=== PATIENT | female | born 1950 | race Caucasian/White ===

== ENCOUNTER 2017-08-10 22:42 | Observation (INO) | payer OTHER ==
[~2017-08-10] VITALS: Ht 170.2 cm; Wt 72.6 kg
[~2017-08-10 22:42] MED LIST: ANTIDIARRHEAL2 MG PO; BENZONATATE100 MG PO; CIPRO500 M1 PO; CIPRO500 MG PO; CIPROFLOXACIN500 M1 PO; DIFLUCAN PO; HYDROCODON-ACE1 EAC7 PO; HYDROCODONE-AP1 EAC6 PO; IBUPROFEN 800800 M1 PO; LEVAQUIN 500 M500 M2 PO; LISINOPRIL10 MG PO; LISINOPRIL5 MG PO; LORTAB 10-3251 EACH PO; METHOTREXATE 22.5 MG PO; NORCO 5-325 TA1 EAC1 PO; NORCO 5-325 TA1 EACH PO; ONDANSETRON HCL4 M2 PO; PROBIOTIC1 EAC2 PO; SINGULAIR 10 MG10 M1 PO; TORADOL 10 MG T10 MG PO; VICODIN 5-5001 EACH PO; ZOFRAN ODT4 MG PO; ZOFRAN8 MG PO
[2017-08-10 22:43] VITALS: BP 153/92
[2017-08-10] MEDS ORDERED: COZAAR 25 MG TA25 M1 PO (22:48)
[2017-08-10 23:08] LABS: ABSOLUTE BASOPHILS 0.1 thou/uL (0.0-0.2); ABSOLUTE EOSINOPHILS 0.1 thou/uL (0.0-0.7); ABSOLUTE LYMPHOCYTES 2.1 thou/uL (0.8-5.3); ABSOLUTE MONOCYTES 0.9 thou/uL (0.0-1.2); ABSOLUTE NEUTROPHILS 4.4 thou/uL (1.6-8.1); EOSINOPHILS 1.3 %; HEMATOCRIT 36.8 % (37.0-47.0); HEMOGLOBIN 12.1 gm/dL (12.0-15.0); LYMPHOCYTES 28.1 %; MCH 30.3 pg (26.0-34.0); MCHC 32.8 g/dL (28.0-37.0); MCV 92.4 fL (80.0-100.0); MONOCYTES 11.8 %; MPV 8.2 fl. (7.2-11.1); NUCLEATED RBCS 0 /100WBC; PLATELET COUNT* 424 thou/uL (150-400); POLYS 57.8 %; RBC 3.99 mil/uL (4.20-5.00); RDW-CV 14.9 % (10.5-14.5); WBC 7.6 thou/uL (4.0-11.0)
[2017-08-10 23:14] LABS: CALCIUM 8.8 mg/dL (8.5-10.1); CREATININE 0.7 mg/dL (0.6-1.3); POTASSIUM 3.7 mmol/L (3.5-5.1)
[2017-08-10 23:19] LABS: ALBUMIN 3.5 g/dL (3.4-5.0); TOTAL BILIRUBIN 0.6 mg/dL (<0.1-1.0); TOTAL PROTEIN 7.1 g/dL (6.4-8.2)
[2017-08-11 01:20] LABS: URINE BILIRUBIN NEGATIVE (Negative); URINE BLOOD 1+ (Negative); URINE CLARITY CLEAR; URINE COLOR YELLOW; URINE GLUCOSE-RANDOM NEGATIVE (Negative); URINE KETONES NEGATIVE (Negative); URINE LEUKOCYTES-REFLEX 1+ (Negative); URINE NITRITE-REFLEX NEGATIVE (Negative); URINE PROTEIN NEGATIVE (Negative); URINE SPECIFIC GRAVITY <= 1.005 (1.005-1.030); URINE UROBILINOGEN 0.2 E.U./dl (0.2-1.0)
[2017-08-11] MEDS ORDERED: CIPROFLOXACIN500 M1 PO ×2 (01:27→08:48)
[2017-08-11] MEDS ORDERED: LOPERAMIDE 2 MG2 M1 PO (01:27)
[2017-08-11 01:39] LABS: AMORPHOUS URATES Few /LPF (None Seen); BACTERIA-REFLEX >30 Many /HPF (None Seen); CASTS None Seen /LPF (None Seen); MUCUS 4-6 Moderate strn/LPF (None Seen); SQUAMOUS 0-3 Few /LPF (0-3); URINE RBC 3-10 Few /HPF (0-2); URINE WBC-REFLEX >25 Many /HPF (0-5); WBC CLUMPS Few (None Seen)
--- NOTE | 2017-08-11 04:21 | NUR ---
PATIENT WAS TO BE DISCHARGED HOME. PATIENT REPORTS TO THIS NURSE THAT SHE LIVES ALONE. SHE USES A WALKER BUT DOES NOT HVE IT HERE WITH HER. PATIENT CONTINUES TH HAVE EPISODES OF DIARRHEA. PATIENT REQUESTED TO STAY IN ED UNTILL CLOSER TO AM.
--- NOTE | 2017-08-11 04:35 | NUR ---
DR JOINER IS AT [facility] TALKING TO PATIENT ABOUT ADMISSION TO HOSPITAL. PATIENT HAD DECLINED ADMISSION BUT NOW STATES SHE WILL STAY FOR IV ANTIBIOTICS.
[2017-08-11 05:21] VITALS: BP 137/83
[2017-08-11 10:20] VITALS: BP 131/57
--- NOTE | 2017-08-11 10:44 | NUR ---
ORDER RECEIVED TO DISCUSS HOME SITUATION/SHOWER ABILITY TO SHOWER AT HOME. MET WITH PT AND DISCUSSED WITH NURSE. PT LIVES ALONE IN RENTAL HOUSE. SHE STATES SHE PLANS TO MOVE TO A SR APT NEAR HER SOON. SHE IS INDEPENDENT WITH ACTIVITY, USES WALKER AND STATES IS ABLE TO COOK AND CLEAN. STATES THERE IS A PART OF HER CEILING IN HER BATHROOM THAT IS OPEN TO THE RAFTER AND SHE CANNOT USE HER SHOWER. SHE DOES HAVE A FRIEND THAT LIVES CLOSEBY THAT IS SUPPORTIVE AND PT PLANS TO GO THERE TO SHOWER. SHE DENIES ANY CONCERNS AND WANTS TO GO HOME. DID PROVIDE CAB VOUCHER FOR HER, GIVEN TO NURSE
[2017-08-11 11:14] VITALS: BP 131/57
--- NOTE | 2017-08-11 11:40 | NUR ---
PATIENT IS ALERT AND ORIENTED TODAY. VITAL SIGNS STABLE ON ROOM AIR. NO COMPLAINTS OF ANY KIND TODAY. PATIENT IS UP WITH STAND BY ASSIST. SHOWERED TODAY IN ROOM. DISCHARGE INSTRUCTIONS GIVEM, PRESCRIPTIONS CALLED INTO PHARMACY AND QUESTIONS ANSWERED FOR PATIENT. CAB CALLED FOR PATIENT. PATIENT LEFT VIA WHEELCHAIR TO CAB TO GO HOME.
[2017-08-11 11:45] VITALS: BP 131/57
== END 2017-08-11 12:10 | disposition home or self-care (01) ==
LOC: M.ERS 22:42 → M.TBA-ER 08-11 04:24 → M.3W 08-11 04:24
PROVIDERS: Physician Assistant; ADMIT Internal Medicine
DX: K52.9 Noninfective gastroenteritis and colitis, unspecified (principal); N39.0 Urinary tract infection, site not specified; R31.9 Hematuria, unspecified; Z72.821 Inadequate sleep hygiene; R30.0 Dysuria; I10 Essential (primary) hypertension

== ENCOUNTER 2018-01-06 13:48 | Emergency (ER) | payer OTHER ==
[~2018-01-06] VITALS: Ht 172.7 cm; Wt 68.0 kg
[~2018-01-06 13:48] MED LIST changes: +COZAAR 25 MG TA25 M1 PO; +LOPERAMIDE 2 MG2 M1 PO
[2018-01-06 13:52] VITALS: BP 155/81
[2018-01-06] MEDS ORDERED: ULTRAM 50MG TAB50 MG PO (13:58)
[2018-01-06] MEDS ORDERED: TRAMADOL 50 MG50 MG PO (14:31)
== END 2018-01-06 14:50 | disposition home or self-care (01) ==
LOC: M.ERS 13:48
DX: M54.5 Low back pain (principal); I10 Essential (primary) hypertension; J45.909 Unspecified asthma, uncomplicated; Z88.8 Allergy status to other drugs, medicaments and biological substances

== ENCOUNTER 2018-04-14 09:42 | Inpatient (IN) | payer OTHER ==
[~2018-04-14] VITALS: Ht 170.2 cm; Wt 72.1 kg
[~2018-04-14 09:42] MED LIST changes: +TRAMADOL 50 MG50 MG PO; +ULTRAM 50MG TAB50 MG PO
[2018-04-14 09:48] VITALS: BP 147/62
[2018-04-14] MEDS ORDERED: IBUPROFEN 600600 M1 PO (09:53)
[2018-04-14 10:06] LABS: ABSOLUTE BASOPHILS 0.1 thou/uL (0.0-0.2); ABSOLUTE EOSINOPHILS 0.1 thou/uL (0.0-0.7); ABSOLUTE LYMPHOCYTES 1.2 thou/uL (0.8-5.3); ABSOLUTE MONOCYTES 0.6 thou/uL (0.0-1.2); ABSOLUTE NEUTROPHILS 5.9 thou/uL (1.6-8.1); BASOPHILS 0.7 %; EOSINOPHILS 1.1 %; HEMATOCRIT 32.4 % (37.0-47.0); HEMOGLOBIN 10.8 gm/dL (12.0-15.0); LYMPHOCYTES 15.6 %; MCH 32.2 pg (26.0-34.0); MCHC 33.3 g/dL (28.0-37.0); MCV 96.8 fL (80.0-100.0); MONOCYTES 8.2 %; MPV 6.7 fl. (7.2-11.1); NUCLEATED RBCS 0 /100WBC; PLATELET COUNT* 397 thou/uL (150-400); POLYS 74.4 %; RBC 3.34 mil/uL (4.20-5.00); RDW-CV 16.7 % (10.5-14.5); WBC 7.9 thou/uL (4.0-11.0)
[2018-04-14 10:20] LABS: ANION GAP 9 mmol/L (7-16); BUN 12 mg/dL (7-18); CALCIUM 8.5 mg/dL (8.5-10.1); CHLORIDE 89 mmol/L (98-107); CO2 26 mmol/L (21-32); CREATININE 0.8 mg/dL (0.6-1.3); GLUCOSE 85 mg/dL (70-99); POTASSIUM 4.4 mmol/L (3.5-5.1); SODIUM 124 mmol/L (136-145)
[2018-04-14 10:31] LABS: ALBUMIN 3.6 g/dL (3.4-5.0); ALKALINE PHOSPHATASE 82 U/L (46-116); LIPASE 147 U/L (73-393); MAGNESIUM 1.7 mg/dL (1.8-2.4); NT-PRO BRAIN NAT PEPTIDE 207 pg/mL (<300); SGOT 25 U/L (15-37); SGPT 33 U/L (30-65); TOTAL BILIRUBIN 0.7 mg/dL (<0.1-1.0); TOTAL PROTEIN 7.2 g/dL (6.4-8.2); TROPONIN-I LEVEL <0.06 ng/mL (<0.06)
[2018-04-14 11:29] VITALS: BP 115/59
[2018-04-14 11:45] VITALS: BP 134/71
[2018-04-14 15:51] VITALS: BP 151/69
[2018-04-14 16:52] VITALS: BP 151/69
[2018-04-14 20:10] VITALS: BP 132/59
[2018-04-15 00:32] VITALS: BP 167/89
[2018-04-15 04:59] LABS: HEMATOCRIT 32.2 % (37.0-47.0); HEMOGLOBIN 10.8 gm/dL (12.0-15.0); MCH 32.9 pg (26.0-34.0); MCHC 33.6 g/dL (28.0-37.0); MPV 7.1 fl. (7.2-11.1); RBC 3.29 mil/uL (4.20-5.00); RDW-CV 16.9 % (10.5-14.5); WBC 7.1 thou/uL (4.0-11.0)
[2018-04-15 05:34] LABS: ALBUMIN 3.4 g/dL (3.4-5.0); ALKALINE PHOSPHATASE 82 U/L (46-116); ANION GAP 10 mmol/L (7-16); BUN 19 mg/dL (7-18); CALCIUM 8.5 mg/dL (8.5-10.1); CHLORIDE 95 mmol/L (98-107); CO2 23 mmol/L (21-32); CREATININE 0.9 mg/dL (0.6-1.3); GLUCOSE 101 mg/dL (70-99); SGOT 22 U/L (15-37); SGPT 28 U/L (30-65); SODIUM 128 mmol/L (136-145); TOTAL BILIRUBIN 0.6 mg/dL (<0.1-1.0); TOTAL PROTEIN 6.3 g/dL (6.4-8.2); TROPONIN-I LEVEL <0.06 ng/mL (<0.06)
[2018-04-15 07:30] VITALS: BP 114/54
[2018-04-15 12:00] VITALS: BP 106/66
[2018-04-15 16:00] VITALS: BP 116/50
--- NOTE | 2018-04-15 16:06 | EKG ---
[place] [address] ELECTROCARDIOGRAM REPORT Name: FRANCINE MENDOZA ALEN Room: [address] ADM IN M.R.#: [id number] Admission: 04/14/18 Attend Phys: Ottoniel Chaudhary, Discharge: Date of : 48 Report #: [id number] THIS REPORT FOR: //name// [facility] ED Test Date: 2018-04-14 Test Time: 09:49:02 Pat Name: FRANCINE MENDOZA Department: Room: [facility] Gender: F Xray Tech: Myrtle : 1950 Requested By: Jesus Balderrama Order Number: [id number] MD: Ariel Khan Measurements Intervals [place] Rate: 102 P: 72 AL: 184 QRS: 59 QRSD: 73 T: 68 QT: 338 QTc: 441 Interpretive Statements Sinus tachycardia Left ventricular hypertrophy Compared to ECG 06/13/2017 02:22:55 Left ventricular hypertrophy now present ST (T wave) deviation no longer present Electronically Signed On 04-15-2018 16:06:49 CDT by Ariel Khan [email or web address] <ELECTRONICALLY SIGNED> By: Ariel Khan MD, [facility] 04/15/18 1606 0949 0949 Ariel Khan MD, [facility] /EPI
--- NOTE | 2018-04-15 17:21 | 2DMMODE ---
[place] [address] 2 D/M-MODE ECHOCARDIOGRAM Name: FRANCINE MENDOZA ALEN Room: [address] IN [facility]#: [id number] Admission: 04/14/18 Attend Phys: Ottoniel Tan Discharge: Date of : 48 Date of Service: 04/15/18 1716 Report #: [id number] THIS REPORT FOR: //name// APPROVED REPORT Study performed: 04/15/2018 15:30:35 EXAM: Comprehensive 2D, Doppler, and color-flow Echocardiogram Patient Location: In-Patient Room #: [facility] Status: routine BSA: 1.82 HR: 97 bpm BP: 114/54 mmHg Rhythm: NSR Other Information Study Quality: Good Indications Chest Pain 2D Dimensions IVSd: 13.01 (7-11mm) LVOT Diam: 20.35 (18-24mm) LVDd: 33.14 mm PWd: 10.08 (7-11mm) Ascending Ao: 35.66 (22-36mm) LVDs: 17.16 (25-40mm) Aortic Root: 28.24 mm Volumes Left Atrial Volume (Systole) LA ESV Index: 19.50 mL/m2 Aortic Valve AoV Peak Clinton.: 1.60 m/s AO Peak Gr.: 10.25 mmHg LVOT Max P.12 mmHg AO Mean Gr.: 5.59 mmHg LVOT Mean P.03 mmHg LVOT Max V: 1.43 m/s AO V2 VTI: 25.50 cm LVOT Mean V: 0.93 m/s ROXY (VTI): 3.13 cm2 LVOT V1 VTI: 24.56 cm Mitral Valve E/A Ratio: 0.60 MV Decel. Time: 176.12 ms MV E Max Clinton.: 0.73 m/[place] [address] 2 D/M-MODE ECHOCARDIOGRAM Name: KELLYFRANCINE ALEN Room: [address] IN ..#: [id number] Admission: 04/14/18 Attend Phys: Ottoniel Tan Discharge: Date of : 48 Date of Service: 04/15/18 1716 Report #: [id number] MV PHT: 51.07 ms MVA (PHT): 4.31 cm2 TDI E/Lateral E': 10.43 E/Medial E': 9.13 Medial E' Clinton.: 0.08 m/s Lateral E' Clinton.: 0.07 m/s Pulmonary Valve PV Peak Clinton.: 1.06 m/s PV Peak Gr.: 4.47 mmHg Tricuspid Valve RAP Estimate: 5.00 mmHg TR Peak Gr.: 20.12 mmHg RVSP: 25.00 mmHg PA Pressure: 25.00 mmHg Left Ventricle The left ventricle is normal size. There is normal LV segmental wall motion. There is normal left ventricular wall thickness. Left ventricular systolic function is normal. The left ventricular ejection fraction is within the normal range. LVEF is 55-60%. Grade I - abnormal relaxation pattern. Right Ventricle The right ventricle is normal size. The right ventricular systolic function is normal. Atria The left atrium size is normal. The right atrium size is normal. Aortic Valve Mild aortic valve sclerosis. Trace aortic regurgitation. There is no aortic valvular stenosis. Mitral Valve There is mitral annular calcification. Trace mitral regurgitation. No evidence of mitral valve stenosis. Tricuspid Valve The tricuspid valve is normal in structure. Trace tricuspid regurgitation. No pulmonary hypertension. Pulmonic Valve The pulmonary valve is normal in structure. There is no pulmonic [place] [address] 2 D/M-MODE ECHOCARDIOGRAM Name: FRANCINE MENDOZA Room: [address] IN [facility]#: [id number] Admission: 04/14/18 Attend Phys: Ottoniel Tan Discharge: Date of : 48 Date of Service: 04/15/18 1716 Report #: [id number] Great Vessels The aortic root is normal in size. IVC is normal in size and collapses >50% with inspiration. Pericardium There is no pericardial effusion. <Conclusion> The left ventricle is normal size. There is normal left ventricular wall thickness. Left ventricular systolic function is normal. The left ventricular ejection fraction is within the normal range. LVEF is 55-60%. Grade I - abnormal relaxation pattern. The right ventricle is normal size. The left atrium size is normal. Mild aortic valve sclerosis. Trace aortic regurgitation. There is no aortic valvular stenosis. There is mitral annular calcification. Trace mitral regurgitation. The tricuspid valve is normal in structure. IVC is normal in size and collapses >50% with inspiration. There is no pericardial effusion. There is normal LV segmental wall motion. <ELECTRONICALLY SIGNED> By: Ariel Khan MD, FACC 04/15/181715 15 15 Ariel Khan MD, FACC /INF
[2018-04-15 20:14] VITALS: BP 140/62
[2018-04-16] VITALS: BP 123/55
[2018-04-16 04:00] VITALS: BP 104/46
[2018-04-16 05:41] LABS: CALCIUM 8.1 mg/dL (8.5-10.1); POTASSIUM 4.4 mmol/L (3.5-5.1)
[2018-04-16 07:30] VITALS: BP 129/52
[2018-04-16 12:04] VITALS: BP 105/52
--- NOTE | 2018-04-16 17:27 | CARDNUC ---
[place] [address] CARDIAC NUCLEAR IMAGING REPORT Name: KELLYFRANCINE ALEN Room: [address] IN [facility]#: [id number] Admission: 04/14/18 Attend Phys: Ottoniel Tan Discharge: Date of : 48 Date of Service: 04/16/18 1727 Report #: [id number] THIS REPORT FOR: //name// APPROVED REPORT Study performed: 04/15/2018 12:19:00 Indication: Chest pain Patient Location: In-Patient Room #: 232 Stress Tech: Allison Bowman Stress Nurse: Asia Brenner RN Ht: 5 ft 7 in Wt: 157 lbs BSA: 1.82 m2 BMI: 24.58 Medical History Medical History: HTN, Breast Cancer x3, , HTN, Angina Medications: ASA 81 mg, Losartan, NTG Allergies: Diuretics Cardiac Risk Factors: Age, HTN, FHX of CAD Previous Cardiac Procedures: None Pretest Chest Pain Characteristics: No chest pain Exercise History: Sedentary Physical Disabilities: Back Meds Held (24 hrs): NTG Meds Held (48 hrs): NTG Resting Data Rest SPECT myocardial perfusion imaging was performed in supine position 30 minutes following the intravenous injection of 11.7 mCi of Tc-99m Sestamibi. Time of rest injection: 12:00 The images were gated to evaluate regional wall motion and calculate left ventricular ejection fraction. Administration Route: IV Administration Site: Left Wrist Pharmacologic Stress Pharmacologic stress test was performed by injecting Regadenoson 0.4 mg IV push over 10-15 seconds immediately followed by the intravenous injection of 34.4 mCi of Tc-99m Sestamibi. Time of stress injection: 13:40 Time of stress imagin:30 Administration Route: [place] [address] CARDIAC NUCLEAR IMAGING REPORT Name: FRANCINE MENDOZA ALEN Room: [address]#: [id number] Admission: 04/14/18 Attend Phys: Ottoniel Tan Discharge: Date of : 48 Date of Service: 04/16/18 1727 Report #: [id number] Administration Site: Left Wrist Heart Rate at time of stress injection: 126 bpm. The images were gated to evaluate regional wall motion and calculate left ventricular ejection fraction. Prone imaging was performed. Stress Test Details Stress Test: Pharmacologic stress testing performed using 0.4 mg of regadenoson per 5 mL given IV over 10 seconds. Reason for pharmacologic stress test: physical limitation. HR Max Heart Rate (APMHR): 151 bpm Resting HR: 94 bpm Target HR (85% APMHR): 128 bpm Max HR Achieved: 126 bpm % of APMHR: 83 Recovery HR: 105 bpm BP Resting BP: 141/86 mmHg Recovery BP: 170/96 mmHg ECG Resting ECG: Sinus Rhythm, normal EKG Stress ECG: Sinus Tachycardia ST Change: None Arrhythmia: None Recovery ECG: Sinus Rhythm, normal EKG Recovery ST Change: None Recovery Arrhythmia: None Clinical Reason for Termination: Completed protocol Stress Symptoms: Hot flash/flushed Exercise duration: 0 min 0 sec Exercise capacity: 1.00 METs The patient had no significant cardiac symptoms with Lexiscan infusion. Nurse Comments Patient exhibited with lower back pain r/t older back surgery that limits leg movement making her a fall risk per patient statement. Patient agreed to sitting Lexiscan. Patient tolerated Lexiscan well with reported hot flash/flushed feeling which resolved with caffeine. Patient had no complaints and left test stable[place] [address] CARDIAC NUCLEAR IMAGING REPORT Name: KELLYFRANCINE ALEN Room: [address]#: [id number] Admission: 04/14/18 Attend Phys: Ottoniel Tan Discharge: Date of : 48 Date of Service: 04/16/18 1727 Report #: [id number] The baseline 12-lead EKG shows sinus rhythm without significant ST or T wave abnormality. EKGs obtained during and post Lexiscan infusion show sinus rhythm and sinus tachycardia with no significant ST or T wave changes when compared to baseline. There were no stress-induced arrhythmias. Study Quality Study: Good Artifact: No artifact Study Data At rest, the left ventricular ejection fraction was 70%.. Post stress, the left ventricular ejection was 76%.. TID = 0.80. Perfusion Normal left ventricular perfusion. Wall Motion Normal left ventricular wall motion. Nuclear Conclusion ECG Findings: negative for ischemia Clinical Findings: negative for ischemia Nuclear Findings: negative for ischemia Exercise Capacity: not assessed Left Ventricular Function: normal Risk Study: low Myocardial perfusion images show no defect to suggest infarct or ischemia. Left ventricular systolic function appears normal on gated studies. This is a low risk study. <Conclusion> The baseline 12-lead EKG shows sinus rhythm without significant ST or T wave abnormality. EKGs obtained during and post Lexiscan infusion show sinus rhythm and sinus tachycardia with no significant ST or T wave changes when compared to baseline. There were no stress-induced arrhythmias. <ELECTRONICALLY SIGNED> By: Jayden Sanchez MD, FACC 04/16/181726 26 26 Jayden Sanchez MD, FACC /INF
[2018-04-16 19:50] VITALS: BP 145/62
[2018-04-17] VITALS: BP 119/61
[2018-04-17 04:00] VITALS: BP 139/64
[2018-04-17 08:30] VITALS: BP 127/68
[2018-04-17 11:48] VITALS: BP 149/79
[2018-04-17] MEDS ORDERED: THERA M PLUS T1 EAC2 PO ×2 (13:47→14:40)
[2018-04-17] MEDS ORDERED: NEXIUM40 MG PO ×2 (13:47→14:39)
[2018-04-17 14:36] VITALS: BP 149/79
== END 2018-04-17 16:03 | disposition home or self-care (01) | DRG 392 ==
LOC: M.ERS 09:42 → M.TBA-ER 10:46 → M.2W 10:46
PROVIDERS: Emergency Medicine Emergency Medical Services; Family Medicine; ADMIT Family Medicine
DX: K21.9 Gastro-esophageal reflux disease without esophagitis (principal); E87.1 Hypo-osmolality and hyponatremia; E86.0 Dehydration; D64.9 Anemia, unspecified; J45.909 Unspecified asthma, uncomplicated; I10 Essential (primary) hypertension; Z85.3 Personal history of malignant neoplasm of breast; Z90.13 Acquired absence of bilateral breasts and nipples; Z98.1 Arthrodesis status; Z88.8 Allergy status to other drugs, medicaments and biological substances; Z82.49 Family history of ischemic heart disease and other diseases of the circulatory system

== ENCOUNTER 2018-07-10 12:44 | Emergency (ER) | payer OTHER ==
[~2018-07-10] VITALS: Ht 172.7 cm; Wt 63.5 kg
[~2018-07-10 12:44] MED LIST changes: +IBUPROFEN 600600 M1 PO; +NEXIUM40 MG PO; +THERA M PLUS T1 EAC2 PO
[2018-07-10] MEDS ORDERED: AUGMENTIN 875-1 EACH PO (14:39)
[2018-07-10 14:46] VITALS: BP 121/62
== END 2018-07-10 14:48 | disposition home or self-care (01) ==
LOC: M.ERS 12:44
DX: J32.0 Chronic maxillary sinusitis (principal); I10 Essential (primary) hypertension; J45.909 Unspecified asthma, uncomplicated; Z98.890 Other specified postprocedural states; Z85.3 Personal history of malignant neoplasm of breast; Z88.8 Allergy status to other drugs, medicaments and biological substances

== ENCOUNTER 2018-07-21 14:52 | Emergency (ER) | payer OTHER ==
[~2018-07-21] VITALS: Ht 172.7 cm; Wt 63.5 kg
[~2018-07-21 14:52] MED LIST changes: +AUGMENTIN 875-1 EACH PO
[2018-07-21] MEDS ORDERED: ACCUNEB SO1.25 MG/1 INH (15:08)
[2018-07-21] MEDS ORDERED: MEDROLDOSEPACK PO (15:25)
[2018-07-21] MEDS ORDERED: CEFDINIR300 MG PO (15:25)
[2018-07-21 15:33] VITALS: BP 149/75
== END 2018-07-21 15:34 | disposition home or self-care (01) ==
LOC: M.ERS 14:52
DX: J01.00 Acute maxillary sinusitis, unspecified (principal); I10 Essential (primary) hypertension; J45.909 Unspecified asthma, uncomplicated; Z98.890 Other specified postprocedural states; Z88.8 Allergy status to other drugs, medicaments and biological substances; Z85.3 Personal history of malignant neoplasm of breast

== ENCOUNTER 2018-09-10 14:03 | Emergency (ER) | payer OTHER ==
[~2018-09-10] VITALS: Ht 170.2 cm; Wt 77.1 kg
[~2018-09-10 14:03] MED LIST changes: +ACCUNEB SO1.25 MG/1 INH; +CEFDINIR300 MG PO; +MEDROLDOSEPACK PO
[2018-09-10] MEDS ORDERED: PRAVACHOL20 MG PO (14:16)
[2018-09-10 14:51] LABS: ABSOLUTE BASOPHILS 0.1 thou/uL (0.0-0.2); ABSOLUTE EOSINOPHILS 0.1 thou/uL (0.0-0.7); ABSOLUTE LYMPHOCYTES 1.7 thou/uL (0.8-5.3); ABSOLUTE MONOCYTES 0.6 thou/uL (0.0-1.2); ABSOLUTE NEUTROPHILS 5.7 thou/uL (1.6-8.1); BASOPHILS 0.7 %; EOSINOPHILS 0.7 %; HEMATOCRIT 36.8 % (37.0-47.0); HEMOGLOBIN 12.5 gm/dL (12.0-15.0); LYMPHOCYTES 21.2 %; MCH 32.3 pg (26.0-34.0); MCV 94.9 fL (80.0-100.0); MONOCYTES 7.7 %; MPV 7.1 fl. (7.2-11.1); NUCLEATED RBCS 0 /100WBC; PLATELET COUNT* 410 thou/uL (150-400); POLYS 69.7 %; RBC 3.88 mil/uL (4.20-5.00); RDW-CV 14.4 % (10.5-14.5); WBC 8.2 thou/uL (4.0-11.0)
[2018-09-10 15:04] LABS: ANION GAP 6 mmol/L (7-16); BUN 9 mg/dL (7-18); CALCIUM 8.9 mg/dL (8.5-10.1); CHLORIDE 97 mmol/L (98-107); CO2 28 mmol/L (21-32); CREATININE 0.8 mg/dL (0.6-1.3); GLUCOSE 94 mg/dL (70-99); SODIUM 131 mmol/L (136-145); TROPONIN-I LEVEL <0.06 ng/mL (<0.06)
[2018-09-10 15:08] LABS: PROTIME 10.6 Seconds (9.20-11.50)
[2018-09-10 15:12] LABS: ALBUMIN 3.6 g/dL (3.4-5.0); ALKALINE PHOSPHATASE 89 U/L (46-116); SGOT 13 U/L (15-37); SGPT 16 U/L (30-65); TOTAL BILIRUBIN 0.4 mg/dL (<0.1-1.0); TOTAL PROTEIN 6.8 g/dL (6.4-8.2)
[2018-09-10 15:17] LABS: URINE BILIRUBIN NEGATIVE (Negative); URINE BLOOD NEGATIVE (Negative); URINE CLARITY CLEAR; URINE COLOR YELLOW; URINE GLUCOSE-RANDOM NEGATIVE (Negative); URINE KETONES NEGATIVE (Negative); URINE LEUKOCYTES-REFLEX NEGATIVE (Negative); URINE NITRITE-REFLEX NEGATIVE (Negative); URINE PROTEIN NEGATIVE (Negative); URINE UROBILINOGEN 0.2 E.U./dl (0.2-1.0)
[2018-09-10 17:49] VITALS: BP 112/76
--- NOTE | 2018-09-11 11:33 | EKG ---
[place] [address] ELECTROCARDIOGRAM REPORT Name: FRANCINE MENDOZA Room: [facility]#: [id number] Admission: 09/10/18 Attend Phys: Discharge: 09/10/18 Date of : 48 Report #: [id number] THIS REPORT FOR: //name// [facility] Test Date: 2018-09-10 Test Time: 14:10:43 Pat Name: FRANCINE MENDOZA Department: Room: Gender: F Mining Consultant: KATLYN : 1950 Requested By: Kallie Decker Order Number: [id number] MD: Thony Quintero Measurements Intervals [place] Rate: 113 P: 50 [place]: 166 QRS: 49 QRSD: 83 T: 56 QT: 325 QTc: 446 Interpretive Statements Sinus tachycardia Probable left atrial enlargement Posterior infarct, old Repol abnrm suggests ischemia, diffuse leads Compared to ECG 04/14/2018 09:49:02 Myocardial infarct finding now present Possible ischemia now present Left ventricular hypertrophy no longer present Electronically Signed On 09-11-2018 11:33:14 CHECK WRITING MACHINE OPERATOR by Thony Quintero [email or web address] <ELECTRONICALLY SIGNED> By: Thony Quintero MD, FACC 09/11/18 1133 1410 1410 Thony Quintero MD, FAC /EPI
== END 2018-09-10 17:50 | disposition home or self-care (01) ==
LOC: M.ERS 14:03
PROVIDERS: Nurse Practitioner Family
DX: J06.9 Acute upper respiratory infection, unspecified (principal); R07.89 Other chest pain; I10 Essential (primary) hypertension; J45.909 Unspecified asthma, uncomplicated; Z88.8 Allergy status to other drugs, medicaments and biological substances; Z98.890 Other specified postprocedural states; Z85.3 Personal history of malignant neoplasm of breast; Z90.13 Acquired absence of bilateral breasts and nipples

== ENCOUNTER 2018-09-26 16:09 | Emergency (ER) | payer OTHER ==
[~2018-09-26] VITALS: Ht 170.2 cm; Wt 68.0 kg
[~2018-09-26 16:09] MED LIST changes: +PRAVACHOL20 MG PO
[2018-09-26 17:58] LABS: ABSOLUTE BASOPHILS 0.1 thou/uL (0.0-0.2); ABSOLUTE EOSINOPHILS 0.1 thou/uL (0.0-0.7); ABSOLUTE LYMPHOCYTES 2.6 thou/uL (0.8-5.3); ABSOLUTE NEUTROPHILS 8.7 thou/uL (1.6-8.1); BASOPHILS 1.1 %; EOSINOPHILS 0.8 %; HEMATOCRIT 35.4 % (37.0-47.0); LYMPHOCYTES 20.9 %; MCH 32.2 pg (26.0-34.0); MCHC 33.9 g/dL (28.0-37.0); MPV 6.6 fl. (7.2-11.1); NUCLEATED RBCS 0 /100WBC; PLATELET COUNT* 458 thou/uL (150-400); POLYS 69.2 %; RBC 3.73 mil/uL (4.20-5.00); RDW-CV 13.7 % (10.5-14.5); WBC 12.5 thou/uL (4.0-11.0)
[2018-09-26 18:18] LABS: APTT 26.1 Seconds (25.0-31.3); PROTIME 10.7 Seconds (9.20-11.50)
[2018-09-26 18:20] LABS: ALBUMIN 3.4 g/dL (3.4-5.0); ALKALINE PHOSPHATASE 76 U/L (46-116); ANION GAP 8 mmol/L (7-16); BUN 14 mg/dL (7-18); CALCIUM 8.6 mg/dL (8.5-10.1); CHLORIDE 97 mmol/L (98-107); CO2 28 mmol/L (21-32); CREATININE 0.7 mg/dL (0.6-1.3); GLUCOSE 93 mg/dL (70-99); LIPASE 126 U/L (73-393); POTASSIUM 3.4 mmol/L (3.5-5.1); SGOT 14 U/L (15-37); SGPT 16 U/L (30-65); SODIUM 133 mmol/L (136-145); TOTAL BILIRUBIN 0.5 mg/dL (<0.1-1.0); TOTAL PROTEIN 6.2 g/dL (6.4-8.2); TROPONIN-I LEVEL <0.06 ng/mL (<0.06)
[2018-09-26 19:25] VITALS: BP 138/68
--- NOTE | 2018-09-27 10:41 | EKG ---
[place] [address] ELECTROCARDIOGRAM REPORT Name: FRANCINE MENDOZA Room: [facility]#: [id number] Admission: 09/26/18 Attend Phys: Discharge: 09/26/18 Date of : 48 Report #: [id number] THIS REPORT FOR: //name// [facility] ED Test Date: 2018-09-26 Test Time: 16:18:57 Pat Name: FRANCINE MENDOZA Department: Room: Gender: F Helicopter Officer: Navarro SHULTZ : 1950 Requested By: Karen Hu Order Number: [id number] MD: Thony Quintero Measurements Intervals [place] Rate: 97 P: 57 RI: 153 QRS: 50 QRSD: 76 T: 63 QT: 351 QTc: 446 Interpretive Statements Sinus rhythm Abnormal R-wave progression, early transition Left ventricular hypertrophy ST depr, consider ischemia, anterolateral lds Compared to ECG 09/10/2018 14:10:43 Left ventricular hypertrophy now present Sinus tachycardia no longer present Possible ischemia still present Electronically Signed On 09-27-2018 10:40:48 CDT by Thony Quintero [email or web address] <ELECTRONICALLY SIGNED> By: Thony Quintero MD, [facility] 09/27/18 1040 1618 1618 Thony Quintero MD, [facility] /EPI
== END 2018-09-26 19:25 | disposition home or self-care (01) ==
LOC: M.ERS 16:09
PROVIDERS: Physician Assistant
DX: R07.89 Other chest pain (principal); R60.0 Localized edema; I10 Essential (primary) hypertension; J45.909 Unspecified asthma, uncomplicated; Z90.89 Acquired absence of other organs; Z88.8 Allergy status to other drugs, medicaments and biological substances; Z85.3 Personal history of malignant neoplasm of breast; Z90.13 Acquired absence of bilateral breasts and nipples

== ENCOUNTER 2018-12-24 10:55 | Emergency (ER) | payer OTHER ==
[~2018-12-24] VITALS: Ht 172.7 cm; Wt 68.0 kg
[2018-12-24 11:00] VITALS: BP 175/88
[2018-12-24] MEDS ORDERED: SPIRONOLACTONE25 M1 PO (11:04)
--- NOTE | 2018-12-24 11:32 | NUR ---
SPOKE WITH SIRENA CAO NATIONAL ACCOUNT EXECUTIVE WITH [facility]. PT HAD AN INCREASED BNP A FEW WEEKS AGO AND WAS REFERED TO CARDIOLOGY FOR FOLLOW UP. PT DID NOT MAKE THAT APPOINTMENT. PT MEDICATION WAS CHANGED 3 WEEKS AGO. PT WAS TO STOP TAKING SPIRONOLACTONE 3 WEEKS AGO AND START TAKING LASIX. PT CONTINUED TO TAKE SPIRONOLACTONE WITH THE LASIX. PT REFERED HERE FOR ELECTROLYTE CHECK.
[2018-12-24 11:58] LABS: ABSOLUTE BASOPHILS 0.1 thou/uL (0.0-0.2); ABSOLUTE EOSINOPHILS 0.1 thou/uL (0.0-0.7); ABSOLUTE LYMPHOCYTES 1.7 thou/uL (0.8-5.3); ABSOLUTE MONOCYTES 0.6 thou/uL (0.0-1.2); ABSOLUTE NEUTROPHILS 5.1 thou/uL (1.6-8.1); BASOPHILS 0.9 %; EOSINOPHILS 1.1 %; HEMATOCRIT 37.3 % (37.0-47.0); HEMOGLOBIN 12.4 gm/dL (12.0-15.0); LYMPHOCYTES 22.4 %; MCH 31.4 pg (26.0-34.0); MCHC 33.2 g/dL (28.0-37.0); MCV 94.6 fL (80.0-100.0); MONOCYTES 7.7 %; MPV 6.8 fl. (7.2-11.1); NUCLEATED RBCS 0 /100WBC; PLATELET COUNT* 476 thou/uL (150-400); POLYS 67.9 %; RBC 3.95 mil/uL (4.20-5.00); RDW-CV 14.7 % (10.5-14.5); WBC 7.5 thou/uL (4.0-11.0)
[2018-12-24 12:04] LABS: APTT 27.7 Seconds (25.0-31.3); PROTIME 10.1 Seconds (9.20-11.50)
[2018-12-24 12:32] LABS: ANION GAP 14 mmol/L (7-16); BUN 13 mg/dL (7-18); CALCIUM 9.2 mg/dL (8.5-10.1); CHLORIDE 100 mmol/L (98-107); CO2 22 mmol/L (21-32); CREATININE 0.8 mg/dL (0.6-1.3); GLUCOSE 101 mg/dL (70-99); POTASSIUM 3.6 mmol/L (3.5-5.1); SODIUM 136 mmol/L (136-145)
[2018-12-24 12:44] LABS: ALBUMIN 3.7 g/dL (3.4-5.0); ALKALINE PHOSPHATASE 90 U/L (46-116); CK-MB MASS 1.4 ng/mL (<0.5-3.6); LIPASE 137 U/L (73-393); MAGNESIUM 1.7 mg/dL (1.8-2.4); NT-PRO BRAIN NAT PEPTIDE 257 pg/mL (<300); SGOT 14 U/L (15-37); SGPT 20 U/L (30-65); TOTAL BILIRUBIN 0.7 mg/dL (<0.1-1.0); TOTAL PROTEIN 7.2 g/dL (6.4-8.2); TROPONIN-I LEVEL <0.06 ng/mL (<0.06)
[2018-12-24 13:50] LABS: URINE BILIRUBIN NEGATIVE (Negative); URINE BLOOD NEGATIVE (Negative); URINE CLARITY CLEAR; URINE COLOR YELLOW; URINE GLUCOSE-RANDOM NEGATIVE (Negative); URINE KETONES NEGATIVE (Negative); URINE LEUKOCYTES NEGATIVE (Negative); URINE NITRITE NEGATIVE (Negative); URINE PROTEIN NEGATIVE (Negative); URINE UROBILINOGEN 0.2 E.U./dl (0.2-1.0)
[2018-12-24 13:59] VITALS: BP 165/99
--- NOTE | 2018-12-24 15:45 | EKG ---
[place] [address] ELECTROCARDIOGRAM REPORT Name: FRANCINE MENDOZA Room: [place] [address] ADM IN [facility].#: [id number] Admission: 12/24/18 Attend Phys: Parker Robledo MD Discharge: Date of : 48 Report #: [id number] THIS REPORT FOR: //name// [facility] ED Test Date: 2018-12-24 Test Time: 11:28:01 Pat Name: FRANCINE MENDOZA Department: Room: [facility] Gender: F Chief Estimator: : 1950 Requested By: Jatinder Paulson Order Number: [id number] MD: Jayden Sanchez Measurements Intervals [place] Rate: 107 P: 60 PA: 167 QRS: 52 QRSD: 79 T: 65 QT: 339 QTc: 453 Interpretive Statements Sinus tachycardia Probable left atrial enlargement Borderline ST depression, anterior leads Compared to ECG 09/26/2018 16:18:57 ST (T wave) deviation now present Sinus rhythm no longer present Left ventricular hypertrophy no longer present Possible ischemia no longer present Electronically Signed On 12-24-2018 15:45:31 CDT by Jayden Sanchez [email or web address] <ELECTRONICALLY SIGNED> By: Jayden Sanchez MD, FAC 12/24/18 1545 1128 1128 Jayden Sanchez MD, FAC /EPI
== END 2018-12-24 14:01 | disposition left against medical advice (07) ==
LOC: M.ERS 10:55 → M.TBA-ER 13:24 → M.ERS 14:01 → M.TBA-ER 14:01
PROVIDERS: Emergency Medicine
DX: R07.89 Other chest pain (principal); I10 Essential (primary) hypertension; J45.909 Unspecified asthma, uncomplicated; Z90.89 Acquired absence of other organs; Z85.3 Personal history of malignant neoplasm of breast; Z90.13 Acquired absence of bilateral breasts and nipples

== ENCOUNTER 2018-12-25 10:34 | Emergency (ER) | payer OTHER ==
[~2018-12-25] VITALS: Ht 172.7 cm; Wt 68.0 kg
[~2018-12-25 10:34] MED LIST changes: +SPIRONOLACTONE25 M1 PO
[2018-12-25 11:02] LABS: ABSOLUTE EOSINOPHILS 0.1 thou/uL (0.0-0.7); ABSOLUTE LYMPHOCYTES 1.7 thou/uL (0.8-5.3); ABSOLUTE MONOCYTES 0.5 thou/uL (0.0-1.2); ABSOLUTE NEUTROPHILS 4.9 thou/uL (1.6-8.1); BASOPHILS 0.5 %; EOSINOPHILS 1.4 %; HEMATOCRIT 36.5 % (37.0-47.0); HEMOGLOBIN 12.2 gm/dL (12.0-15.0); LYMPHOCYTES 23.5 %; MCH 31.5 pg (26.0-34.0); MCHC 33.3 g/dL (28.0-37.0); MCV 94.7 fL (80.0-100.0); MONOCYTES 6.5 %; MPV 6.9 fl. (7.2-11.1); NUCLEATED RBCS 0 /100WBC; PLATELET COUNT* 471 thou/uL (150-400); POLYS 68.1 %; RBC 3.86 mil/uL (4.20-5.00); RDW-CV 14.7 % (10.5-14.5); WBC 7.2 thou/uL (4.0-11.0)
[2018-12-25 11:10] LABS: ANION GAP 13 mmol/L (7-16); APTT 27.3 Seconds (25.0-31.3); BUN 11 mg/dL (7-18); CHLORIDE 100 mmol/L (98-107); CO2 23 mmol/L (21-32); CREATININE 0.9 mg/dL (0.6-1.3); GLUCOSE 158 mg/dL (70-99); POTASSIUM 3.5 mmol/L (3.5-5.1); PROTIME 10.4 Seconds (9.20-11.50); SODIUM 136 mmol/L (136-145)
[2018-12-25 11:22] LABS: ALBUMIN 3.6 g/dL (3.4-5.0); ALKALINE PHOSPHATASE 86 U/L (46-116); CK-MB MASS 1.3 ng/mL (<0.5-3.6); LIPASE 120 U/L (73-393); MAGNESIUM 1.7 mg/dL (1.8-2.4); NT-PRO BRAIN NAT PEPTIDE 264 pg/mL (<300); SGOT 16 U/L (15-37); SGPT 19 U/L (30-65); TOTAL BILIRUBIN 0.7 mg/dL (<0.1-1.0); TOTAL PROTEIN 6.9 g/dL (6.4-8.2); TROPONIN-I LEVEL <0.06 ng/mL (<0.06)
[2018-12-25 11:45] VITALS: BP 140/59
--- NOTE | 2018-12-25 15:58 | EKG ---
[place] [address] ELECTROCARDIOGRAM REPORT Name: FRANCINE MENDOZA Room: [facility]#: [id number] Admission: 12/25/18 Attend Phys: Discharge: 12/25/18 Date of : 48 Report #: [id number] THIS REPORT FOR: //name// [facility] ED Test Date: 2018-12-25 Test Time: 10:41:21 Pat Name: FRANCINE MENDOZA Department: Room: Gender: F Care Mgr: : 1950 Requested By: Eleuterio Bunch Order Number: [id number] MD: Ariel Khan Measurements Intervals [place] Rate: 101 P: 59 GA: 170 QRS: 51 QRSD: 80 T: 63 QT: 345 QTc: 448 Interpretive Statements Sinus tachycardia Abnormal R-wave progression, early transition Consider left ventricular hypertrophy ST depr, consider ischemia, anterolateral lds Compared to ECG 12/24/2018 11:28:01 Possible ischemia now present ST (T wave) deviation no longer present Electronically Signed On 12-25-2018 15:58:26 CDT by Ariel Khan [email or web address] <ELECTRONICALLY SIGNED> By: Ariel Khan MD, [facility] 12/25/18 1558 1041 1041 Ariel Khan MD, [facility] /EPI
== END 2018-12-25 11:50 | disposition home or self-care (01) ==
LOC: M.ERS 10:34
PROVIDERS: Family Medicine
DX: R07.89 Other chest pain (principal); I10 Essential (primary) hypertension; J45.909 Unspecified asthma, uncomplicated; Z90.89 Acquired absence of other organs; Z88.8 Allergy status to other drugs, medicaments and biological substances; Z90.13 Acquired absence of bilateral breasts and nipples; Z85.3 Personal history of malignant neoplasm of breast

== ENCOUNTER 2019-03-18 07:32 | Inpatient (IN) | payer OTHER ==
[~2019-03-18] VITALS: Ht 170.2 cm; Wt 86.8 kg
[2019-03-18 07:34] VITALS: BP 139/87
[2019-03-18] MEDS ORDERED: METHOTREXATE 22.5 MG PO (07:38)
[2019-03-18 08:23] LABS: ANION GAP 10 mmol/L (7-16); BUN 13 mg/dL (7-18); CALCIUM 9.1 mg/dL (8.5-10.1); CHLORIDE 96 mmol/L (98-107); CO2 29 mmol/L (21-32); CREATININE 0.9 mg/dL (0.6-1.3); GLUCOSE 106 mg/dL (70-99); POTASSIUM 3.3 mmol/L (3.5-5.1); SODIUM 135 mmol/L (136-145)
[2019-03-18 08:29] LABS: APTT 21.2 Seconds (25.0-31.3)
[2019-03-18 08:35] LABS: ALBUMIN 3.7 g/dL (3.4-5.0); ALKALINE PHOSPHATASE 109 U/L (46-116); NT-PRO BRAIN NAT PEPTIDE 184 pg/mL (<300); SGOT 16 U/L (15-37); SGPT 17 U/L (30-65); TOTAL BILIRUBIN 0.4 mg/dL (<0.1-1.0); TOTAL PROTEIN 7.1 g/dL (6.4-8.2); TROPONIN-I LEVEL <0.06 ng/mL (<0.06)
[2019-03-18 08:43] LABS: ABSOLUTE BASOPHILS 0.1 thou/uL (0.0-0.2); ABSOLUTE EOSINOPHILS 0.1 thou/uL (0.0-0.7); ABSOLUTE LYMPHOCYTES 2.9 thou/uL (0.8-5.3); ABSOLUTE MONOCYTES 0.6 thou/uL (0.0-1.2); ABSOLUTE NEUTROPHILS 5.9 thou/uL (1.6-8.1); BASOPHILS 1.1 %; EOSINOPHILS 1.4 %; HEMOGLOBIN 12.8 gm/dL (12.0-15.0); LYMPHOCYTES 29.8 %; MCH 31.6 pg (26.0-34.0); MCHC 33.7 g/dL (28.0-37.0); MCV 93.7 fL (80.0-100.0); MONOCYTES 6.3 %; MPV 7.8 fl. (7.2-11.1); NUCLEATED RBCS 0 /100WBC; PLATELET COUNT* 351 thou/uL (150-400); POLYS 61.4 %; RBC 4.05 mil/uL (4.20-5.00); RDW-CV 14.8 % (10.5-14.5); WBC 9.7 thou/uL (4.0-11.0)
--- NOTE | 2019-03-18 09:25 | NUR ---
DR. PATEL IN ROOM WITH PATIENT.
[2019-03-18 10:21] VITALS: BP 129/59
[2019-03-18 11:00] VITALS: BP 146/87
[2019-03-18 15:50] VITALS: BP 153/85
--- NOTE | 2019-03-18 15:54 | 2DMMODE ---
[place] [address] 2 D/M-MODE ECHOCARDIOGRAM Name: FRANCINE MENDOZA ALEN Room: [address] IN [facility]#: [id number] Admission: 03/18/19 Attend Phys: Elizabeth Wilson, Discharge: Date of : 48 Date of Service: 03/18/19 1554 Report #: [id number] THIS REPORT FOR: //name// APPROVED REPORT Study performed: 03/18/2019 10:02:57 EXAM: Comprehensive 2D, Doppler, and color-flow Echocardiogram Patient Location: In-Patient Room #: er Status: routine BSA: 1.96 HR: 96 bpm BP: 129/67 mmHg Rhythm: NSR Other Information Technically limited study due to inability to position patient, patient could not tolerate to finish test. Indications Chest Pain 2D Dimensions IVSd: 7.81 (7-11mm) LVOT Diam: 19.42 (18-24mm) LVDd: 34.05 mm PWd: 9.74 (7-11mm) Ascending Ao: 28.97 (22-36mm) LVDs: 24.44 (25-40mm) Aortic Root: 27.50 mm Aortic Valve AoV Peak Clinton.: 1.77 m/s AO Peak Gr.: 12.48 mmHg LVOT Max P.99 mmHg AO Mean Gr.: 7.15 mmHg LVOT Mean P.61 mmHg LVOT Max V: 1.12 m/s AO V2 VTI: 33.16 cm LVOT Mean V: 0.75 m/s ROXY (VTI): 1.87 cm2 LVOT V1 VTI: 20.93 cm Pulmonary Valve PV Peak Clinton.: 0.92 m/s PV Peak Gr.: 3.36 mmHg Left Ventricle The left ventricle is normal size. There is normal LV segmental wall motion. There is normal left ventricular wall thickness. Left ventricular systolic function is normal. LVEF is 60-65%. [place] [address] 2 D/M-MODE ECHOCARDIOGRAM Name: FRANCINE MENDOZA Room: [address] IN .R.#: [id number] Admission: 03/18/19 Attend Phys: Elizabeth Wilson, Discharge: Date of : 48 Date of Service: 03/18/19 1554 Report #: [id number] is not technically sufficient to allow evaluation of the LV diastolic function. Right Ventricle The right ventricle is normal size. The right ventricular systolic function is normal. Atria The left atrium size is normal. The right atrium size is normal. Aortic Valve Mild aortic valve sclerosis. Trace aortic regurgitation. Mild aortic stenosis. Mitral Valve There is mitral annular calcification. Trace mitral regurgitation. No evidence of mitral valve stenosis. Tricuspid Valve Tricuspid valve is not well visualized. Unable to assess PA pressure. Trace tricuspid regurgitation. Pulmonic Valve Pulmonic valve is not well visualized. There is no pulmonic valvular regurgitation. Great Vessels The aortic root is normal in size. IVC is not well visualized. Pericardium There is no pericardial effusion. <Conclusion> The left ventricle is normal size. There is normal left ventricular wall thickness. Left ventricular systolic function is normal. LVEF is 60-65%. There is normal LV segmental wall motion. Mild aortic valve sclerosis. [place] [address] 2 D/M-MODE ECHOCARDIOGRAM Name: FRANCINE MENDOZA Room: [address] IN [facility].#: [id number] Admission: 03/18/19 Attend Phys: Elizabeth Wilson, Discharge: Date of : 48 Date of Service: 03/18/191553 Report #: [id number] Trace mitral regurgitation. Trace tricuspid regurgitation. <ELECTRONICALLY SIGNED> By: Jayden Sanchez MD, FAC 03/18/19 1554 53 53 Jayden Sanchez MD, FACC /INF
--- NOTE | 2019-03-18 15:55 | NUR ---
RECEIVED REPORT FROM ER AT 1100, GET SITUATED TO ROOM, TELE IN PLACED TRACING ST ON MONITOR. PT AOX4, UP SBA, USES WALKER, O2 SAT 90'S RA. PT DENIES PAIN. PT BILATERAL LOWER EXTREMITY EDEMA NOTED. LASIX GIVEN PER SEP. PT HAD CARDIOLOGY CONSULT. PT ON HEART HEALTHY DIET. FOR STRESS TEST TOMORROW, NPO MIDNIGHT. PT/OT ONBOARD. ADMISSION ASSESSMENT DONE. VSS, CALL LIGHT WITHIN REACH, HOURLY ROUNDING, WILL CONTINUE TO MONITOR
--- NOTE | 2019-03-18 16:22 | EKG ---
[place] [address] ELECTROCARDIOGRAM REPORT Name: FRANCINE MENDOZA Room: [address] ADM IN [facility].R.#: [id number] Admission: 03/18/19 Attend Phys: Elizabeth Wilson MD Discharge: Date of : 48 Report #: [id number] THIS REPORT FOR: //name// [facility] ED Test Date: 2019-03-18 Test Time: 07:39:19 Pat Name: FRANCINE MENDOZA Department: Room: [facility] Gender: F Server Developer: : 1950 Requested By: Eleuterio Bunch Order Number: [id number] MD: Ariel Khan Measurements Intervals [place] Rate: 84 P: 46 ID: [id number] QRS: 41 QRSD: 78 T: 56 QT: 401 QTc: 475 Interpretive Statements Sinus rhythm Abnormal R-wave progression, early transition Compared to ECG 12/25/2018 10:41:21 Sinus tachycardia no longer present Possible ischemia no longer present Electronically Signed On 03-18-2019 16:22:22 CDT by Ariel Khan [email or web address] <ELECTRONICALLY SIGNED> By: Ariel Khan MD, [facility] 03/18/19 1622 0739 0739 Ariel Khan MD, [facility] /EPI
[2019-03-18 20:48] VITALS: BP 130/66
[2019-03-19] VITALS: BP 98/60
[2019-03-19 04:00] VITALS: BP 125/67
[2019-03-19 04:54] LABS: HEMATOCRIT 33.5 % (37.0-47.0); HEMOGLOBIN 11.3 gm/dL (12.0-15.0); MCH 31.3 pg (26.0-34.0); MCHC 33.6 g/dL (28.0-37.0); MPV 7.5 fl. (7.2-11.1); RBC 3.6 mil/uL (4.20-5.00); RDW-CV 14.7 % (10.5-14.5); WBC 8.5 thou/uL (4.0-11.0)
[2019-03-19 05:09] LABS: ALBUMIN 3.1 g/dL (3.4-5.0); CREATININE 0.9 mg/dL (0.6-1.3); TOTAL BILIRUBIN 0.4 mg/dL (<0.1-1.0); TOTAL PROTEIN 6.2 g/dL (6.4-8.2)
[2019-03-19 05:10] LABS: POTASSIUM 4.5 mmol/L (3.5-5.1)
--- NOTE | 2019-03-19 05:14 | NUR ---
PT IS ABLE TO COMMUNICATE HER NEEDS TO STAFF EFFECTIVELY. CURRENT PAIN MEDICATION REGIMEN HAS BEEN ADEQUATE FOR CONTROLLING HER PAIN UP TO THIS TIME. PT HAS BEEN NPO SINCE MIDNIGHT FOR A LIPID PROFILE THIS AM AND STRESS TEST LATER TODAY.
[2019-03-19 05:16] LABS: CHOLESTEROL 208 mg/dL (<200); HDL CHOLESTEROL 86 mg/dL (>40); LDL CHOLESTEROL 113 mg/dL (<100); TC:HDL 2.4 Ratio (Not establshd); TRIGLYCERIDE 45 mg/dL (<150); VLDL 9 mg/dL (<40)
[2019-03-19 05:23] LABS: SERUM ASSESSMENT Clear
[2019-03-19 08:00] VITALS: BP 133/58
--- NOTE | 2019-03-19 11:10 | NUR ---
ASSUMED PT CARE AT 0800, AOX4, UP SBA, USES WALKER. O2 SAT 90'S RA, TRACING SR ON TELE. DENIES PAIN. PT FOR STRESS TEST. ON ANTIBIOTIC. LOWER EXTREMITY EDEMA NOTED. LAST BM 03/18/19. VSS, AM ASSESSMENT CHARTED, HOURLY ROUNDING, CALL LIGHT WITHIN REACH, WILL CONTINUE TO MONITOR.
[2019-03-19 12:07] VITALS: BP 155/75
--- NOTE | 2019-03-19 12:30 | NUR ---
Pt is A&O. Pt states that she resides at the [facility]. Pt continuously discussed her eviction, per previous CM note, the eviction occurred in 2018. CM provided Pt with housing resources. Pt uses a RW for mobility. Pt stated that she has a car and continues to drive. No real support sx, Pt states that her closest friend has moved out of the area. Hx of HH. Hx of skilled at [facility]. Cm spoke with Dr Harjit to order therapies, thinks that Pt may need skilled at dc, CM updated Pt, Pt stated that she would want to dc to [facility] if skilled is necessary. Per , anticipate that Pt will be ready to dc on Sunday. Following.
[2019-03-19 15:32] VITALS: BP 116/65
--- NOTE | 2019-03-19 18:11 | CARDNUC ---
[place] [address] CARDIAC NUCLEAR IMAGING REPORT Name: FRANCINE MENDOZA ALEN Room: [address] IN [facility]#: [id number] Admission: 03/18/19 Attend Phys: Elizabeth Wilson, Discharge: Date of : 48 Date of Service: 03/19/191810 Report #: [id number] THIS REPORT FOR: //name// APPROVED REPORT Imaging Protocol: Rest Tc-99m/Stress Tc-99m 1 day Study performed: 03/19/2019 10:19:00 Indication: Chest pain, Dyspnea Patient Location: In-Patient Room #: 226 Stress Tech: Mary Ann Aviles Stress Nurse: Asia Brenner RN Ht: 5 ft 7 in Wt: 184 lbs BSA: 1.95 m2 BMI: 28.81 Medical History Medical History: Breast Cancer, Spine fusion, Angina, CHF, Fatigue, HTN, Hyperlipidemia, SOB, Weakness, LE Edema. Medications: Spironolactone, Losartan. Allergies: Diuretics Cardiac Risk Factors: Age, FHX of CAD, HTN, Hyperlipidemia, SOB, Edema. Previous Cardiac Procedures: None Pretest Chest Pain Characteristics: No chest pain Exercise History: Sedentary Physical Disabilities: Spine surgery, LE edema, Unstable/unsteady gait. Meds Held (24 hrs): None Resting Data Rest SPECT myocardial perfusion imaging was performed in supine position 30 minutes following the intravenous injection of 9.0 mCi of Tc-99m Sestamibi. Time of rest injection: 10:00 The images were gated to evaluate regional wall motion and calculate left ventricular ejection fraction. Administration Route: IV Administration Site: Right Arm Pharmacologic Stress Pharmacologic stress test was performed by injecting Regadenoson 0.4 mg IV push over 10-15 seconds immediately followed by the intravenous injection of 28.1 mCi of Tc-99[place] [address] CARDIAC NUCLEAR IMAGING REPORT Name: FRANCINE MENDOZA Room: [address]#: [id number] Admission: 03/18/19 Attend Phys: Elizabeth Wilson, Discharge: Date of : 48 Date of Service: 03/19/19 1811 Report #: [id number] Time of stress injection: 11:40 Administration Route: IV Administration Site: Right Arm Heart Rate at time of stress injection: 120 bpm. Gated Stress SPECT was performed 90 minutes after stress injection. The images were gated to evaluate regional wall motion and calculate left ventricular ejection fraction. Stress Test Details Stress Test: Pharmacologic stress testing performed using 0.4 mg of regadenoson per 5 mL given IV over 10 seconds. Reason for pharmacologic stress test: Back pain, LE edema, unstable/unsteady gait.. HR Max Heart Rate (APMHR): 150 bpm Resting HR: 92 bpm Target HR (85% APMHR): 127 bpm Max HR Achieved: 120 bpm % of APMHR: 80 Recovery HR: 87 bpm BP Resting BP: 139/79 mmHg Max BP: 91/52 mmHg Recovery BP: 131/70 mmHg ECG Resting ECG: Sinus Rhythm Stress ECG: Sinus Tachycardia ST Change: None Arrhythmia: None Recovery ECG: Sinus Rhythm Recovery ST Change: None Recovery Arrhythmia: None Clinical Reason for Termination: Completed protocol Stress Symptoms: Warmth feeling in chest. Exercise duration: 00 min 00 sec Exercise capacity: 1.00 METs The patient had no significant cardiac symptoms with Lexiscan infusion. Nurse Comments 69 year old female inpatient presented with recent HX of chest discomfort, dyspnea, increased fatigue and LE edema. Patient tolerated sitting Lexiscan. Recovery unremarkable with PO caffeine, [place] [address] CARDIAC NUCLEAR IMAGING REPORT Name: FRANCINE MENDOZA ALEN Room: [address]#: [id number] Admission: 03/18/19 Attend Phys: Elizabeth Wilson, Discharge: Date of : 48 Date of Service: 03/19/19 1811 Report #: [id number]. Patient was escorted by staff via wheelchair to Telemetry room for lunch, then to Nuclear Med for images. Patient was stable with no complaints at that time. Staff nurse was notified of patients return to floor. Stress ECG Conclusion The baseline 12-lead EKG shows sinus rhythm without significant ST segment abnormality. EKGs obtained during and post Lexiscan walking protocol showed sinus rhythm and sinus tachycardia with no significant ST or T wave changes when compared to baseline. There were no stress-induced arrhythmias. Study Quality Study: Good Artifact: No artifact Study Data At rest, the left ventricular ejection fraction was 66%.. Post stress, the left ventricular ejection was 67%.. TID = 0.93. Perfusion Normal left ventricular perfusion. Wall Motion Normal left ventricular wall motion. Nuclear Conclusion ECG Findings: negative for ischemia Clinical Findings: negative for ischemia Nuclear Findings: negative for ischemia Exercise Capacity: not assessed Left Ventricular Function: normal Risk Study: low Myocardial perfusion images show no defect to suggest infarct or ischemia. Left ventricular systolic function appears normal on gated studies. This is a low risk study. <Conclusion> The baseline 12-lead EKG shows sinus rhythm without significant ST segment abnormality. EKGs obtained during and post Lexiscan walking protocol showed sinus rhythm and sinus tachycardia [place] [address] CARDIAC NUCLEAR IMAGING REPORT Name: FRANCINE MENDOZA ALEN Room: [address] IN [facility]#: [id number] Admission: 03/18/19 Attend Phys: Elizabeth Wilson, Discharge: Date of : 48 Date of Service: 03/19/19 1811 Report #: [id number] or T wave changes when compared to baseline. There were no stress-induced arrhythmias. <ELECTRONICALLY SIGNED> By: Jayden Sanchez MD, FACC 03/19/191810 10 10 Jayden Sanchez MD, FACC /INF
[2019-03-19 20:00] VITALS: BP 133/66
[2019-03-20] VITALS (7 sets, daily range): BP systolic 121–171; BP diastolic 49–94
--- NOTE | 2019-03-20 04:34 | NUR ---
ASSUMED CARE AT 1900H, ON ROOM AIR AND TOLERATED.NO RESPIRATORY DISTRESS AND CHEST PAINNOTED. PT SLEPT WELL. CONTINUE MONITORING AND TOWARDS GOALS.
--- NOTE | 2019-03-20 13:08 | NUR ---
PT A&O X3, TOLERATING RA. VS ARE STABLE. STAND BY UP WITH WALKER. C/O PAIN TO BACK AND HIP WITH PARTIAL RELIEF WITH MEDICATION. PT IS RESTING IN BED WITH CALL LIGHT WITHIN REACH, ALL NEEDS MET AT THIS TIME.
--- NOTE | 2019-03-20 14:45 | NUR ---
CONTINUE TO FOLLOW. PLAN DC FRI, DISCUSSED HH AND OPTIONS, CHOSE [facility]. CALLED AND FAXED INITIAL REF. PT AGREEABLE TO [facility], THEY WERE HERE TO VISIT W PT AND PLAN TO RETURN TOMORROW
--- NOTE | 2019-03-20 18:32 | NUR ---
PT IS A&O X4, UP WITH WALKER,STAND BY ASSIST. PAIN IS AT A TOLERABLE 4. RESTING IN BED, ALL CURRENT NEEDS HAVE BEEN MET, CALL LIGHT WITHIN REACH.
--- NOTE | 2019-03-20 18:56 | NUR ---
I HAVE REVIEWED AND AGREE WITH THE ASSESMENT, CHARTING AND NOTES OF ATA Henriquez RN, ON 03/20/19
[2019-03-21] VITALS: BP 151/78
[2019-03-21 04:03] VITALS: BP 151/94
--- NOTE | 2019-03-21 05:06 | NUR ---
PATIENT PROGRESSING TOWARDS GOALS: PATIENT REMAINS ON ROOM AIR, VSS. PATIENT C/O HIP PAIN RELIEVED WITH TYLENOL. UP WITH ASSIST X1 TO BSC. HAS STRESS INCONTINENCE AT TIMES. CLEAN BRIEFS PROVIDED. POSSIBLE DISCHARGE TODAY. CALL LIGHT WITHIN REACH
[2019-03-21 08:00] VITALS: BP 139/80
--- NOTE | 2019-03-21 11:01 | NUR ---
ASSUMED PT CARE AT 0800, AOX4, UP SBA, USES WALKER. O2 SAT 90'S RA. TRACING SR ON TELE. PT DENIES PAIN, PT STATE SHES NOT READY TO GO HOME. EDEMA NOTED ON BILATERAL LEG. PT ON ANTIBIOTIC. VSS, AM ASSESSMENT CHARTED MEDS, GIVEN PER MAR. CALL LIGHT WITHIN REACH. WILL CONTINUE TO MONITOR.
[2019-03-21] MEDS ORDERED: PREDNISONE 20 M20 MG PO (11:26)
[2019-03-21] MEDS ORDERED: LEVAQUIN 500 M500 M2 PO (11:26)
--- NOTE | 2019-03-21 12:10 | NUR ---
ORDERS FOR SNF VS HH. PT AMBULATED W PT, REVOMMENDATION IS HOME. DID CALL [facility], SHE STATED WITH THERAPY NOTES SHE WILL NOT QUALIFY FOR SNF. DISCUSSED WITH PT. OK TO GO HOME WITH HH AND [facility]. FAXED ORDERS TO BOTH AGENCIES. LEFT VMAIL FOR [facility]: RIDE HOME. PT VOICED MAY NEED TO FIND NEW HOUSING, DISCUSSED AND GAVE INFO WELL MEDICAID [place] INFO.
[2019-03-21 13:36] VITALS: BP 130/67
[2019-03-21 13:48] VITALS: BP 122/72
--- NOTE | 2019-03-21 17:08 | CON ---
[address] [address] CONSULTATION Name: FRANCINE MENDOZA Room: [address] IN [facility]#: [id number] Admission: 03/18/19 Attend Phys: Elizabeth Wilson MD Discharge: Date of : 48 Report #: [id number] THIS REPORT FOR: //name// CC: Elizabeth Lester INDICATION: Chest pain. HISTORY OF PRESENT ILLNESS: The patient is a very pleasant 69-year-old white female admitted to the hospital with complaints of chest tightness associated with cough and swelling in her feet and legs. These symptoms of chest tightness began yesterday and persisted throughout the night and into today. She states she was diagnosed with heart failure in January. The pain does not radiate. There are no other associated symptoms. She denies diaphoresis. She does have progressive dyspnea on exertion. She is without other cardiac complaint at this time. She has ruled out for myocardial infarction by serial enzymes. EKG shows no acute ST or T-wave abnormalities to suggest ischemia. PAST MEDICAL HISTORY: 1. Rheumatoid arthritis. 2. 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 3. Breast cancer with mastectomy in 2011. 4. Asthma. 5. Hypertension. 6. Congestive heart failure. 7. Tonsillectomy remotely. 8. Hyperlipidemia. FAMILY HISTORY: The patient's mother had congestive heart failure. There was no history of premature atherosclerotic coronary artery disease. SOCIAL HISTORY: The patient is a lifelong nonsmoker and nondrinker. ALLERGIES: DIURETICS MAKE HER FEEL POORLY. HOME MEDICATIONS: Methotrexate 2.5 mg, Singulair as directed, pravastatin 20 mg daily, spironolactone 25 mg daily, and losartan 25 mg daily. REVIEW OF SYSTEMS: A 14-point review of systems is positive for some left leg weakness, cough productive of clear sputum, asthma, chest tightness and dyspnea as outlined above, some lower extremity edema, history of breast cancer. She has seasonal and medical allergies. She has arthritis secondary to rheumatoid arthritis. She has reading glasses, but no acute change in vision. Otherwise, 14-point review of systems was unremarkable. PHYSICAL EXAMINATION: [place] [address] CONSULTATION Name: FRANCINE MENDOZA Room: [address]#: [id number] Admission: 03/18/19 Attend Phys: Elizabeth Wilson MD Discharge: Date of : 48 Report #: [id number] VITAL SIGNS: Blood pressure 146/87, pulse 95 and regular. GENERAL: This is a pleasant female in no distress. Mood and affect appropriate. HEENT: Extraocular muscles intact. Mucous membranes are moist. NECK: Shows no jugular venous distention. There are no carotid bruits. CHEST: Reveals clear lung wagoner. CARDIOVASCULAR: Reveals a regular rhythm without gallop or murmur. ABDOMEN: Reveals normal bowel sounds. The abdomen is soft and nontender. EXTREMITIES: Shows trace ankle and lower extremity edema. She has bony deformities in the hands consistent with rheumatoid arthritis. LABORATORY DATA: A 12-lead EKG shows sinus rhythm with no acute ST or T-wave abnormalities. Labs are reviewed. Sodium 135, potassium 3.3, chloride 96, bicarbonate 29, BUN 13, creatinine 0.9, and serum glucose 106. LFTs within normal limits. Troponins are less than 0.06 on 3 separate occasions. NT-proBNP 184. Coags are within normal limits. White blood cell count 9.7, hemoglobin 12.8, and platelet count 351,000. Chest x-ray shows some atelectasis and persistent left hemidiaphragm elevation. No acute changes noted. IMPRESSION AND RECOMMENDATIONS: 1. Chest discomfort, doubt acute coronary syndrome in light of prolonged nature and negative enzymes. We will plan for noninvasive stress testing in a.m. Echocardiogram has been ordered and is pending. 2. Hypertension. Continue home medications with adjustments as needed. 3. Hyperlipidemia. The patient on a statin agent. We will check fasting lipid profile. 4. Heart failure by the patient's report. I suspect this is likely diastolic. Echocardiogram ordered and pending. She does appear a little volume overloaded. We will give a single dose of furosemide and follow labs in a.m. <ELECTRONICALLY SIGNED> By: Jayden Sanchez MD, FACC 03/21/19 1708 [id number] Sanchez MD, FACC /nt
== END 2019-03-21 17:00 | disposition home health service (06) | DRG 194 ==
LOC: M.ERS 07:32 → M.TBA-ER 08:57 → M.2W 08:57
PROVIDERS: Family Medicine; Internal Medicine Cardiovascular Disease; ADMIT Internal Medicine
DX: J15.9 Unspecified bacterial pneumonia (principal); I50.32 Chronic diastolic (congestive) heart failure; J45.909 Unspecified asthma, uncomplicated; M06.9 Rheumatoid arthritis, unspecified; I11.0 Hypertensive heart disease with heart failure; E78.5 Hyperlipidemia, unspecified; I35.0 Nonrheumatic aortic (valve) stenosis; Z79.899 Other long term (current) drug therapy; Z85.3 Personal history of malignant neoplasm of breast; Z90.13 Acquired absence of bilateral breasts and nipples; Z88.8 Allergy status to other drugs, medicaments and biological substances; Z90.49 Acquired absence of other specified parts of digestive tract